=== PATIENT | female | born 1980 | race Caucasian/White ===

== ENCOUNTER 2017-01-24 06:52 | Emergency (ER) | payer OTHER ==
[~2017-01-24] VITALS: Ht 175.3 cm; Wt 100.0 kg
[~2017-01-24 06:52] MED LIST: AMBIEN5 MG OR; AMOXICILLIN500 MG OR; AMOXICILLIN875 MG OR; AUGMENTIN875TAB OR; BENADRYL25 MG OR; CEPHALEXIN500 M1 PO; CEPHALEXIN500 MG PO; FIORICET PO; FLEXERIL10 MG PO; LABETALOL100 MG OR; LEXAPRO20 MG OR; LEXAPRO20 MG PO; MACRODANTIN100 MG PO; MEDDOSEPAK OR; MELATONIN10 M1 PO; MOTRIN IB200 MG OR; MOTRIN800 MG OR; NAPROSYN500 MG PO; NEXIUM40 M1 OR; NO; PERCOCET 5/325M1 TAB OR; PRENATAL1 TAB OR; ROBITUSSIN AC10 ML OR; SINGULAIR PO; SINGULAIR10 MG OR; SM IBUPROFEN200 MG PO; TRAZODONE100 MG OR; TRAZODONE150 MG OR; XANAX1 MG OR
[2017-01-24] MEDS ORDERED: PYRIDIUM200 MG PO (07:17)
[2017-01-24] MEDS ORDERED: MACROBID100 MG PO (07:17)
[2017-01-24 07:54] VITALS: BP 132/88
== END 2017-01-24 07:56 | disposition home or self-care (01) | DRG 690 ==
LOC: ED 06:52
DX: N39.0 Urinary tract infection, site not specified (principal); R30.0 Dysuria

== ENCOUNTER 2017-02-26 18:55 | Emergency (ER) | payer OTHER ==
[~2017-02-26] VITALS: Ht 175.3 cm; Wt 103.0 kg
[~2017-02-26 18:55] MED LIST changes: +MACROBID100 MG PO; +PYRIDIUM200 MG PO
[2017-02-26 19:36] LABS: URINE BILIRUBIN - DIPSTICK NEGATIVE (NEGATIVE); URINE BLOOD DIPSTICK NEGATIVE (NEGATIVE); URINE COLOR YELLOW; URINE GLUCOSE - DIPSTICK NEGATIVE (NEGATIVE); URINE KETONE NEGATIVE (NEGATIVE); URINE NITRITE - DIPSTICK NEGATIVE (Negative); URINE PROTEIN - DIPSTICK NEGATIVE (NEG-TRACE); URINE UROBILINOGEN - DIPSTICK 0.2 E.U./dL (0.2)
[2017-02-26 19:38] LABS: HEMATOCRIT 40.6 % (37.0-47.0); HEMOGLOBIN 13.2 g/dl (12.0-16.0); IMMATURE GRANULOCYTES 0.2 % (0.0-1.0); MEAN CELL VOLUME 84.4 fL CALC (80.0-100.0); MEAN CORPUSCULAR HGB 27.4 pG CALC (26.0-32.0); MEAN CORPUSCULAR HGB CONC 32.5 g/L CALC (32.0-36.0); NEUT# 5.95 thou/uL (2.00-7.15); RED BLOOD COUNT 4.81 mill/uL (4.20-5.60); RED CELL DISTRI WIDTH 15.7 % (11.5-15.5)
[2017-02-26 19:41] LABS: URINE CLARITY CLOUDY; URINE LEUK ESTERASE MODERATE (NEGATIVE)
[2017-02-26 19:48] LABS: ALBUMIN 4.6 g/dL (3.2-5.0); ALKALINE PHOSPHATASE 51 u/l (38-126); AMYLASE 64 u/l (30-110); ANION GAP 13 (6-22 (CALC)); BILIRUBIN, TOTAL 0.4 mg/dL (0.0-1.4); BUN 10 mg/dL (7-17); BUN/CREATININE RATIO 14 (12-20 (CALC)); CALCIUM 9.6 mg/dL (8.4-10.2); CARBON DIOXIDE 25 mmol/l (22-30); CHLORIDE 106 mmol/l (95-108); CREATININE 0.7 mg/dL (0.5-1.0); GFR > 60 ML/MIN (>=60 (CALC)); GFR FOR AFR.AMER. > 60 ML/MIN (>=60 (CALC)); GLUCOSE 52 mg/dL (65-105); LIPASE 177 u/l (23-300); POTASSIUM 4.2 mmol/l (3.5-5.1); SGOT/AST 28 u/l (14-36); SGPT/ALT 35 u/l (9-52); SODIUM 140 mmol/l (137-146)
[2017-02-26 19:51] LABS: URINE SQUAMOUS EPITHELIAL CELL FEW EPI/hpf (0-FEW)
[2017-02-26] MEDS ORDERED: CIPROFLOXACN500 MG PO (21:28)
[2017-02-26 21:41] VITALS: BP 135/78
== END 2017-02-26 21:48 | disposition home or self-care (01) | DRG 690 ==
LOC: ED 18:55
PROVIDERS: Emergency Medicine
DX: N39.0 Urinary tract infection, site not specified (principal); G93.2 Benign intracranial hypertension; J45.909 Unspecified asthma, uncomplicated
CPT/HCPCS: Q9967

== ENCOUNTER 2017-07-07 06:15 | Emergency (ER) | payer OTHER ==
[~2017-07-07] VITALS: Ht 175.3 cm; Wt 104.4 kg
[~2017-07-07 06:15] MED LIST changes: +CIPROFLOXACN500 MG PO
[2017-07-07 07:15] LABS: INFLUENZA A POSITIVE (NONE DETECT); INFLUENZA B NONE DETECTED (NONE DETECT)
[2017-07-07] MEDS ORDERED: TAM75CAP PO (07:17)
[2017-07-07 07:26] VITALS: BP 123/80
== END 2017-07-07 07:39 | disposition home or self-care (01) | DRG 195 ==
LOC: ED 06:15
PROVIDERS: Emergency Medicine
DX: J10.1 Influenza due to other identified influenza virus with other respiratory manifestations (principal)

== ENCOUNTER 2017-12-06 10:41 | Emergency (ER) | payer OTHER ==
[~2017-12-06] VITALS: Ht 175.3 cm; Wt 100.0 kg
[~2017-12-06 10:41] MED LIST changes: +TAM75CAP PO
[2017-12-06] MEDS ORDERED: TORADOL PO (11:56)
[2017-12-06] MEDS ORDERED: FLEXERIL PO (11:56)
[2017-12-06 11:58] VITALS: BP 129/88
== END 2017-12-06 12:20 | disposition home or self-care (01) | DRG 563 ==
LOC: ED 10:41
DX: S86.912A Strain of unspecified muscle(s) and tendon(s) at lower leg level, left leg, initial encounter (principal); S76.012A Strain of muscle, fascia and tendon of left hip, initial encounter; S46.812A Strain of other muscles, fascia and tendons at shoulder and upper arm level, left arm, initial encounter; F17.210 Nicotine dependence, cigarettes, uncomplicated; I10 Essential (primary) hypertension; W18.39XA Other fall on same level, initial encounter; Y93.89 Activity, other specified; Y92.149 Unspecified place in prison as the place of occurrence of the external cause; Y99.0 Civilian activity done for income or pay

== ENCOUNTER 2018-02-17 10:07 | Emergency (ER) | payer OTHER ==
[~2018-02-17] VITALS: Ht 175.3 cm; Wt 104.5 kg
[~2018-02-17 10:07] MED LIST changes: +FLEXERIL PO; +TORADOL PO
[2018-02-17] MEDS ORDERED: CEPHALEXIN500 MG PO (10:29)
[2018-02-17 10:47] LABS: HEMATOCRIT 40.3 % (37.0-47.0); HEMOGLOBIN 13.1 g/dl (12.0-16.0); IMMATURE GRANULOCYTES 0.3 % (0.0-5.0); MEAN CELL VOLUME 85.6 fL CALC (80.0-100.0); MEAN CORPUSCULAR HGB 27.8 pG CALC (26.0-32.0); MEAN CORPUSCULAR HGB CONC 32.5 g/L CALC (32.0-36.0); NEUT# 5.02 thou/uL (2.00-7.15); RED BLOOD COUNT 4.71 mill/uL (4.20-5.60); RED CELL DISTRI WIDTH 14.6 % (11.5-15.5)
[2018-02-17 10:48] LABS: URINE BILIRUBIN - DIPSTICK NEGATIVE (NEGATIVE); URINE BLOOD DIPSTICK NEGATIVE (NEGATIVE); URINE CLARITY CLEAR; URINE COLOR YELLOW; URINE GLUCOSE - DIPSTICK NEGATIVE (NEGATIVE); URINE KETONE NEGATIVE (NEGATIVE); URINE LEUK ESTERASE NEGATIVE (NEGATIVE); URINE NITRITE - DIPSTICK NEGATIVE (Negative); URINE PH 5.5 (4.5-8.0); URINE PROTEIN - DIPSTICK NEGATIVE (NEG-TRACE); URINE SPECIFIC GRAVITY >=1.030; URINE UROBILINOGEN - DIPSTICK 0.2 E.U./dL (0.2)
[2018-02-17 11:18] LABS: ALBUMIN 4.2 g/dL (3.2-5.0); ALKALINE PHOSPHATASE 55 u/l (38-126); ANION GAP 17 (6-22 (CALC)); BILIRUBIN, TOTAL 0.5 mg/dL (0.0-1.4); BUN 14 mg/dL (7-17); BUN/CREATININE RATIO 21 (12-20 (CALC)); CARBON DIOXIDE 21 mmol/l (22-30); CHLORIDE 107 mmol/l (95-108); CREATININE 0.7 mg/dL (0.5-1.0); GFR > 60 ML/MIN (>=60 (CALC)); GFR FOR AFR.AMER. > 60 ML/MIN (>=60 (CALC)); LIPASE 126 u/l (23-300); POTASSIUM 4.3 mmol/l (3.5-5.1); SGOT/AST 38 u/l (14-36); SGPT/ALT 29 u/l (9-52); SODIUM 141 mmol/l (137-146); TOTAL PROTEIN 7.8 g/dL (6.3-8.2)
[2018-02-17] MEDS ORDERED: OMNICEF300 M1 PO (11:45)
[2018-02-17 11:50] VITALS: BP 117/73
== END 2018-02-17 11:50 | disposition home or self-care (01) | DRG 690 ==
LOC: ED 10:07
PROVIDERS: Family Medicine
DX: N39.0 Urinary tract infection, site not specified (principal); F17.210 Nicotine dependence, cigarettes, uncomplicated; Z87.442 Personal history of urinary calculi

== ENCOUNTER 2019-01-04 05:38 | Emergency (ER) | payer OTHER ==
[~2019-01-04] VITALS: Ht 175.3 cm; Wt 110.0 kg
[~2019-01-04 05:38] MED LIST changes: +OMNICEF300 M1 PO
[2019-01-04 06:26] LABS: HEMATOCRIT 37.6 % (37.0-47.0); HEMOGLOBIN 12.3 g/dl (12.0-16.0); IMMATURE GRANULOCYTES 0.2 % (0.0-5.0); MEAN CELL VOLUME 85.5 fL CALC (80.0-100.0); MEAN CORPUSCULAR HGB CONC 32.7 g/L CALC (32.0-36.0); NEUT# 6.26 thou/uL (2.00-7.15); RED BLOOD COUNT 4.4 mill/uL (4.20-5.60); RED CELL DISTRI WIDTH 15.1 % (11.5-15.5)
[2019-01-04 06:46] LABS: ALBUMIN 4.2 g/dL (3.2-5.0); ALKALINE PHOSPHATASE 59 u/l (38-126); ANION GAP 13 (6-22 (CALC)); BILIRUBIN, TOTAL 0.3 mg/dL (0.0-1.4); BUN 19 mg/dL (7-17); BUN/CREATININE RATIO 29 (12-20 (CALC)); CARBON DIOXIDE 24 mmol/l (22-30); CHLORIDE 106 mmol/l (95-108); CREATININE 0.6 mg/dL (0.5-1.0); GFR > 60 ML/MIN (>=60 (CALC)); GFR FOR AFR.AMER. > 60 ML/MIN (>=60 (CALC)); POTASSIUM 3.8 mmol/l (3.5-5.1); SGOT/AST 38 u/l (14-36); SODIUM 139 mmol/l (137-146); TOTAL PROTEIN 7.2 g/dL (6.3-8.2)
[2019-01-04 06:58] LABS: MYOGLOBIN 21 ng/mL (0 - 62)
[2019-01-04] MEDS ORDERED: CYCLOBENZAPR5 MG PO (07:26)
[2019-01-04 07:45] VITALS: BP 118/76
== END 2019-01-04 07:45 | disposition home or self-care (01) | DRG 93 ==
LOC: ED 05:38
PROVIDERS: Emergency Medicine
DX: R20.2 Paresthesia of skin (principal); F17.210 Nicotine dependence, cigarettes, uncomplicated

== ENCOUNTER 2019-02-17 12:26 | Emergency (ER) | payer OTHER ==
[~2019-02-17] VITALS: Ht 175.3 cm; Wt 101.0 kg
[~2019-02-17 12:26] MED LIST changes: +CYCLOBENZAPR5 MG PO
[2019-02-17 13:02] LABS: URINE BILIRUBIN - DIPSTICK NEGATIVE (NEGATIVE); URINE BLOOD DIPSTICK NEGATIVE (NEGATIVE); URINE COLOR YELLOW; URINE GLUCOSE - DIPSTICK NEGATIVE (NEGATIVE); URINE KETONE NEGATIVE (NEGATIVE); URINE NITRITE - DIPSTICK NEGATIVE (Negative); URINE PH 5.5 (4.5-8.0); URINE PROTEIN - DIPSTICK NEGATIVE (NEG-TRACE); URINE SPECIFIC GRAVITY 1.025; URINE UROBILINOGEN - DIPSTICK 0.2 E.U./dL (0.2)
[2019-02-17 13:06] LABS: URINE LEUK ESTERASE MODERATE (NEGATIVE)
[2019-02-17 13:07] LABS: URINE BACTERIA FEW hpf; URINE EPITHELIAL CELLS FEW EPI/hpf (0-FEW)
[2019-02-17 13:19] LABS: HEMATOCRIT 42.3 % (37.0-47.0); HEMOGLOBIN 13.8 g/dl (12.0-16.0); IMMATURE GRANULOCYTES 0.2 % (0.0-5.0); MEAN CELL VOLUME 85.8 fL CALC (80.0-100.0); MEAN CORPUSCULAR HGB CONC 32.6 g/L CALC (32.0-36.0); NEUT# 6.49 thou/uL (2.00-7.15); RED BLOOD COUNT 4.93 mill/uL (4.20-5.60); RED CELL DISTRI WIDTH 14.6 % (11.5-15.5)
[2019-02-17 13:45] LABS: ALBUMIN 4.7 g/dL (3.2-5.0); ALKALINE PHOSPHATASE 65 u/l (38-126); ANION GAP 15 (6-22 (CALC)); BILIRUBIN, TOTAL 0.5 mg/dL (0.0-1.4); BUN 15 mg/dL (7-17); BUN/CREATININE RATIO 22 (12-20 (CALC)); CARBON DIOXIDE 24 mmol/l (22-30); CHLORIDE 106 mmol/l (95-108); CREATININE 0.7 mg/dL (0.5-1.0); GFR > 60 ML/MIN (>=60 (CALC)); GFR FOR AFR.AMER. > 60 ML/MIN (>=60 (CALC)); LIPASE 132 u/l (23-300); SGOT/AST 34 u/l (14-36); SODIUM 140 mmol/l (137-146); TOTAL PROTEIN 8.1 g/dL (6.3-8.2)
[2019-02-17] MEDS ORDERED: ATORVASTATIN CA20 MG PO (14:04)
[2019-02-17] MEDS ORDERED: KEFLEX500 M1 PO (17:16)
[2019-02-17 17:30] VITALS: BP 118/76
== END 2019-02-17 17:45 | disposition home or self-care (01) | DRG 690 ==
LOC: ED 12:26
DX: N39.0 Urinary tract infection, site not specified (principal); R19.03 Right lower quadrant abdominal swelling, mass and lump; F17.200 Nicotine dependence, unspecified, uncomplicated
CPT/HCPCS: Q9967

== ENCOUNTER 2019-08-12 | Emergency (ER) | payer OTHER ==
[~2019-08-12] MED LIST changes: +ATORVASTATIN CA20 MG PO; +KEFLEX500 M1 PO
[2019-08-12] MEDS ORDERED: ZPAK PO (08:27)
[2019-08-12] MEDS ORDERED: PROAIR HFA108 MCG/AC PO (08:28)
== END 2019-08-12 08:35 | disposition home or self-care (01) | DRG 153 ==
DX: J06.9 Acute upper respiratory infection, unspecified (principal); F17.200 Nicotine dependence, unspecified, uncomplicated

== ENCOUNTER 2019-09-09 | Emergency (ER) | payer OTHER ==
[~2019-09-09] MED LIST changes: +PROAIR HFA108 MCG/AC PO; +ZPAK PO
[2019-09-09] MEDS ORDERED: HYDROXYZ PAM25 MG PO (10:17)
[2019-09-09] MEDS ORDERED: ESCITALOPRAM OX10 MG PO (10:19)
[2019-09-09] MEDS ORDERED: PREDNISODT10 PO (10:19)
[2019-09-09] MEDS ORDERED: TRILEPTAL150 MG PO (10:20)
[2019-09-09 10:32] LABS: HEMATOCRIT 40.4 % (37.0-47.0); HEMOGLOBIN 12.6 g/dl (12.0-16.0); IMMATURE GRANULOCYTES 0.5 % (0.0-5.0); MEAN CELL VOLUME 85.1 fL CALC (80.0-100.0); MEAN CORPUSCULAR HGB 26.5 pG CALC (26.0-32.0); MEAN CORPUSCULAR HGB CONC 31.2 g/dL CAL (32.0-36.0); NEUT# 9.79 thou/uL (2.00-7.15); RED BLOOD COUNT 4.75 mill/uL (4.20-5.60); RED CELL DISTRI WIDTH 15.1 % (11.5-15.5)
[2019-09-09 10:47] LABS: ALBUMIN 4.4 g/dL (3.2-5.0); ALKALINE PHOSPHATASE 52 u/l (38-126); ANION GAP 13 (6-22 (CALC)); BILIRUBIN, TOTAL 0.4 mg/dL (0.0-1.4); BUN 14 mg/dL (7-17); BUN/CREATININE RATIO 22 (12-20 (CALC)); CARBON DIOXIDE 24 mmol/l (22-30); CHLORIDE 105 mmol/l (95-108); CREATININE 0.7 mg/dL (0.5-1.0); GFR > 60 ML/MIN (>=60 (CALC)); GFR FOR AFR.AMER. > 60 ML/MIN (>=60 (CALC)); POTASSIUM 4.1 mmol/l (3.5-5.1); SGOT/AST 30 u/l (14-36); SODIUM 138 mmol/l (137-146); TOTAL PROTEIN 7.8 g/dL (6.3-8.2)
[2019-09-09] MEDS ORDERED: ALBUTEROL SUL0.083 % IN (11:29)
== END 2019-09-09 11:43 | disposition home or self-care (01) | DRG 203 ==
PROVIDERS: Emergency Medicine
DX: J45.909 Unspecified asthma, uncomplicated (principal); Z87.891 Personal history of nicotine dependence

== ENCOUNTER 2020-02-16 11:02 | Emergency (ER) | payer OTHER ==
[~2020-02-16] VITALS: Ht 175.3 cm; Wt 103.0 kg
[~2020-02-16 11:02] MED LIST changes: +ALBUTEROL SUL0.083 % IN; +ESCITALOPRAM OX10 MG PO; +HYDROXYZ PAM25 MG PO; +PREDNISODT10 PO; +TRILEPTAL150 MG PO
[2020-02-16 12:22] VITALS: BP 128/90
[2020-02-16] MEDS ORDERED: FLOXIN OTIC0.3 % AD (12:23)
== END 2020-02-16 12:35 | disposition home or self-care (01) | DRG 156 ==
LOC: ED 11:02
PROC: 3E1B78Z Irrigation of Ear using Irrigating Substance, Via Natural or Artificial Opening (ICD-10-PCS; principal; 2020-02-16)
PROC: 3E1B78Z Irrigation of Ear using Irrigating Substance, Via Natural or Artificial Opening (ICD-10-PCS; 2020-02-16)
DX: H61.23 Impacted cerumen, bilateral (principal); S00.411A Abrasion of right ear, initial encounter; J45.909 Unspecified asthma, uncomplicated; F17.290 Nicotine dependence, other tobacco product, uncomplicated; X58.XXXA Exposure to other specified factors, initial encounter

== ENCOUNTER 2020-12-06 08:50 | Emergency (ER) | payer OTHER ==
[~2020-12-06] VITALS: Ht 175.3 cm; Wt 109.0 kg
[~2020-12-06 08:50] MED LIST changes: +FLOXIN OTIC0.3 % AD
[2020-12-06] MEDS ORDERED: TRAZODONE50 MG PO (09:27)
[2020-12-06] MEDS ORDERED: KLONOPIN0.5 M1 PO (09:29)
[2020-12-06] MEDS ORDERED: CLARITIN10 M1 PO (10:15)
[2020-12-06] MEDS ORDERED: AMOXICILLIN500 MG PO (10:15)
[2020-12-06 10:22] VITALS: BP 135/81
== END 2020-12-06 10:28 | disposition home or self-care (01) | DRG 153 ==
LOC: ED 08:50
DX: J02.9 Acute pharyngitis, unspecified (principal); J45.909 Unspecified asthma, uncomplicated; F17.200 Nicotine dependence, unspecified, uncomplicated; Z20.822 Contact with and (suspected) exposure to COVID-19

== ENCOUNTER 2020-12-08 07:56 | Emergency (ER) | payer OTHER ==
[~2020-12-08] VITALS: Ht 175.3 cm; Wt 109.0 kg
[~2020-12-08 07:56] MED LIST changes: +AMOXICILLIN500 MG PO; +CLARITIN10 M1 PO; +KLONOPIN0.5 M1 PO; +TRAZODONE50 MG PO
[2020-12-08 08:40] LABS: URINE BILIRUBIN - DIPSTICK NEGATIVE (NEGATIVE); URINE BLOOD DIPSTICK NEGATIVE (NEGATIVE); URINE COLOR YELLOW; URINE GLUCOSE - DIPSTICK NEGATIVE (NEGATIVE); URINE KETONE NEGATIVE (NEGATIVE); URINE LEUK ESTERASE NEGATIVE (NEGATIVE); URINE NITRITE - DIPSTICK NEGATIVE (Negative); URINE PH 5.5 (4.5-8.0); URINE PROTEIN - DIPSTICK NEGATIVE (NEG-TRACE); URINE SPECIFIC GRAVITY >=1.030; URINE UROBILINOGEN - DIPSTICK 0.2 E.U./dL (0.2)
[2020-12-08 09:04] LABS: HEMOGLOBIN 12.6 g/dl (12.0-16.0); IMMATURE GRANULOCYTES 0.1 % (0.0-5.0); MEAN CELL VOLUME 80.2 fL CALC (80.0-100.0); MEAN CORPUSCULAR HGB 25.3 pG CALC (26.0-32.0); MEAN CORPUSCULAR HGB CONC 31.5 g/dL CAL (32.0-36.0); NEUT# 8.23 thou/uL (2.00-7.15); RED BLOOD COUNT 4.99 mill/uL (4.20-5.60); RED CELL DISTRI WIDTH 16.1 % (11.5-15.5)
[2020-12-08 09:15] LABS: ALBUMIN 4.3 g/dL (3.2-5.0); ALKALINE PHOSPHATASE 85 u/l (38-126); ANION GAP 13 (6-22 (CALC)); BILIRUBIN, TOTAL 0.3 mg/dL (0.0-1.4); BUN 13 mg/dL (7-17); BUN/CREATININE RATIO 19 (12-20 (CALC)); CARBON DIOXIDE 20 mmol/l (22-30); CHLORIDE 106 mmol/l (95-108); CREATININE 0.7 mg/dL (0.5-1.0); GFR > 60 ML/MIN (>=60 (CALC)); GFR FOR AFR.AMER. > 60 ML/MIN (>=60 (CALC)); LIPASE 140 u/l (23-300); POTASSIUM 4.1 mmol/l (3.5-5.1); SGOT/AST 32 u/l (14-36); SODIUM 136 mmol/l (137-146); TOTAL PROTEIN 7.7 g/dL (6.3-8.2)
[2020-12-08] MEDS ORDERED: EPIPEN 2-P0.3 MG/0.3 IM (10:09)
[2020-12-08] MEDS ORDERED: PREDNISONE50 MG PO (10:09)
[2020-12-08] MEDS ORDERED: ZPAK PO (10:09)
[2020-12-08 10:11] VITALS: BP 131/72
== END 2020-12-08 10:20 | disposition home or self-care (01) | DRG 607 ==
LOC: ED 07:56
PROVIDERS: Family Medicine
DX: L50.0 Allergic urticaria (principal); N83.9 Noninflammatory disorder of ovary, fallopian tube and broad ligament, unspecified; N83.201 Unspecified ovarian cyst, right side; J45.909 Unspecified asthma, uncomplicated; F17.200 Nicotine dependence, unspecified, uncomplicated

== ENCOUNTER 2020-12-16 07:27 | Emergency (ER) | payer OTHER ==
[~2020-12-16] VITALS: Ht 175.3 cm; Wt 95.0 kg
[~2020-12-16 07:27] MED LIST changes: +EPIPEN 2-P0.3 MG/0.3 IM; +PREDNISONE50 MG PO
[2020-12-16] MEDS ORDERED: LEXAPRO10 MG PO (07:54)
[2020-12-16 08:10] LABS: URINE BILIRUBIN - DIPSTICK NEGATIVE (NEGATIVE); URINE BLOOD DIPSTICK TRACE-LYSED (NEGATIVE); URINE COLOR YELLOW; URINE GLUCOSE - DIPSTICK NEGATIVE (NEGATIVE); URINE KETONE TRACE mg/dL (NEGATIVE); URINE LEUK ESTERASE NEGATIVE (NEGATIVE); URINE PROTEIN - DIPSTICK NEGATIVE (NEG-TRACE); URINE SPECIFIC GRAVITY 1.025; URINE UROBILINOGEN - DIPSTICK 0.2 E.U./dL (0.2)
[2020-12-16 08:11] LABS: HEMATOCRIT 37.5 % (37.0-47.0); HEMOGLOBIN 11.7 g/dl (12.0-16.0); IMMATURE GRANULOCYTES 0.1 % (0.0-5.0); MEAN CELL VOLUME 81.9 fL CALC (80.0-100.0); MEAN CORPUSCULAR HGB 25.5 pG CALC (26.0-32.0); MEAN CORPUSCULAR HGB CONC 31.2 g/dL CAL (32.0-36.0); NEUT# 6.01 thou/uL (2.00-7.15); RED BLOOD COUNT 4.58 mill/uL (4.20-5.60); RED CELL DISTRI WIDTH 16.8 % (11.5-15.5)
[2020-12-16 08:12] LABS: URINE NITRITE - DIPSTICK NEGATIVE (Negative)
[2020-12-16 08:27] LABS: ALKALINE PHOSPHATASE 65 u/l (38-126); AMYLASE 81 u/l (30-110); ANION GAP 11 (6-22 (CALC)); BILIRUBIN, TOTAL 0.3 mg/dL (0.0-1.4); BUN 17 mg/dL (7-17); BUN/CREATININE RATIO 19 (12-20 (CALC)); CHLORIDE 104 mmol/l (95-108); CREATININE 0.9 mg/dL (0.5-1.0); GFR > 60 ML/MIN (>=60 (CALC)); GFR FOR AFR.AMER. > 60 ML/MIN (>=60 (CALC)); LIPASE 168 u/l (23-300); POTASSIUM 3.8 mmol/l (3.5-5.1); SGOT/AST 30 u/l (14-36); SODIUM 138 mmol/l (137-146); TOTAL PROTEIN 7.3 g/dL (6.3-8.2)
[2020-12-16 08:34] LABS: CARBON DIOXIDE 27 mmol/l (22-30)
[2020-12-16] MEDS ORDERED: HYDROCO/APAP1 TA9 PO (10:22)
[2020-12-16 11:07] VITALS: BP 117/60
== END 2020-12-16 11:00 | disposition home or self-care (01) | DRG 761 ==
LOC: ED 07:27
DX: N83.201 Unspecified ovarian cyst, right side (principal); J45.909 Unspecified asthma, uncomplicated
CPT/HCPCS: Q9967

== ENCOUNTER 2021-03-22 12:04 | Emergency (ER) | payer OTHER ==
[~2021-03-22] VITALS: Ht 175.3 cm; Wt 120.0 kg
[~2021-03-22 12:04] MED LIST changes: +HYDROCO/APAP1 TA9 PO; +LEXAPRO10 MG PO
[2021-03-22 12:47] LABS: URINE BLOOD DIPSTICK NEGATIVE (NEGATIVE); URINE GLUCOSE - DIPSTICK 100 mg/dL (NEGATIVE); URINE KETONE 15 mg/dL (NEGATIVE); URINE PH 5.5 (4.5-8.0); URINE PROTEIN - DIPSTICK 30 mg/dL (NEG-TRACE); URINE SPECIFIC GRAVITY 1.025
[2021-03-22 12:48] LABS: URINE BILIRUBIN - DIPSTICK SMALL (NEGATIVE); URINE LEUK ESTERASE MODERATE (NEGATIVE); URINE NITRITE - DIPSTICK POSITIVE (Negative)
[2021-03-22 12:49] LABS: URINE BACTERIA FEW hpf; URINE COLOR ORANGE; URINE EPITHELIAL CELLS FEW EPI/hpf (0-FEW); URINE WBC 0-2 WBC/hpf (0-5)
[2021-03-22] MEDS ORDERED: VALIUM2 MG PO (12:59)
[2021-03-22] MEDS ORDERED: LORATADINE10 M1 PO (13:00)
[2021-03-22] MEDS ORDERED: FLEXERIL5 M1 PO (13:26)
[2021-03-22] MEDS ORDERED: KEFLEX500 MG PO (13:26)
[2021-03-22 13:44] VITALS: BP 133/87
== END 2021-03-22 13:44 | disposition home or self-care (01) | DRG 690 ==
LOC: ED 12:04
DX: N39.0 Urinary tract infection, site not specified (principal); S39.012A Strain of muscle, fascia and tendon of lower back, initial encounter; J45.909 Unspecified asthma, uncomplicated; B96.89 Other specified bacterial agents as the cause of diseases classified elsewhere; X58.XXXA Exposure to other specified factors, initial encounter; Z88.0 Allergy status to penicillin

== ENCOUNTER 2022-12-02 16:32 | Emergency (ER) | payer SELFPAY ==
[~2022-12-02] VITALS: Ht 175.3 cm; Wt 104.0 kg
[~2022-12-02 16:32] MED LIST changes: +FLEXERIL5 M1 PO; +KEFLEX500 MG PO; +LORATADINE10 M1 PO; +VALIUM2 MG PO
[2022-12-02 17:02] VITALS: BP 133/93
[2022-12-02 17:04] LABS: BASO% 0.2 % (0-3); EOS% 0.8 % (0-8); IMMATURE GRANULOCYTES 0.2 % (0.0-5.0); MEAN CORPUSCULAR HGB 28.1 pG CALC (26.0-32.0); MEAN CORPUSCULAR HGB CONC 32.2 g/dL CAL (32.0-36.0); MONO% 5.8 % (2-13); NEUT# 12.25 thou/uL (2.00-7.15); RED BLOOD COUNT 5.38 mill/uL (4.20-5.60); RED CELL DISTRI WIDTH 14.6 % (11.5-15.5)
[2022-12-02 17:05] LABS: HEMATOCRIT 46.9 % (37.0-47.0); HEMOGLOBIN 15.1 g/dl (12.0-16.0); MEAN CELL VOLUME 87.2 fL CALC (80.0-100.0)
[2022-12-02 17:15] LABS: ALBUMIN 4.9 g/dL (3.2-5.0); ALKALINE PHOSPHATASE 90 u/l (38-126); ANION GAP 19 (6-22 (CALC)); BILIRUBIN, TOTAL 0.5 mg/dL (0.02-1.3); BUN 14 mg/dL (7-17); BUN/CREATININE RATIO 14 (12-20 (CALC)); CARBON DIOXIDE 19 mmol/l (22-30); CHLORIDE 105 mmol/l (95-108); CREATININE 1.1 mg/dL (0.5-1.0); GFR FOR AFR.AMER. > 60 ML/MIN (>=60 (CALC)); GFR OTHER RACES 55 ML/MIN (>=60 (CALC)); LIPASE 117 u/l (23-300); POTASSIUM 3.2 mmol/l (3.5-5.1); SGOT/AST 47 u/l (14-36); SODIUM 140 mmol/l (137-146); TOTAL PROTEIN 9.2 g/dL (6.3-8.2)
[2022-12-02 17:16] VITALS: BP 125/79
[2022-12-02 17:30] VITALS: BP 114/89
[2022-12-02 18:00] VITALS: BP 133/87
[2022-12-02 18:16] VITALS: BP 136/84
[2022-12-02] MEDS ORDERED: ZOFRAN4 MG/TAB PO (18:27)
[2022-12-02 18:46] VITALS: BP 136/84
== END 2022-12-02 18:45 | disposition home or self-care (01) | DRG 392 ==
LOC: ED 16:32
PROVIDERS: Family Medicine
DX: R10.13 Epigastric pain (principal); J45.909 Unspecified asthma, uncomplicated
CPT/HCPCS: Q9967

== ENCOUNTER 2022-12-03 08:54 | Emergency (ER) | payer SELFPAY ==
[~2022-12-03] VITALS: Ht 175.3 cm; Wt 104.0 kg
[~2022-12-03 08:54] MED LIST changes: +ZOFRAN4 MG/TAB PO
[2022-12-03 09:03] VITALS: BP 140/79
[2022-12-03 09:25] LABS: BASO% 0.1 % (0-3); HEMATOCRIT 41.5 % (37.0-47.0); HEMOGLOBIN 13.7 g/dl (12.0-16.0); IMMATURE GRANULOCYTES 0.5 % (0.0-5.0); LYMPH% 7.3 % (15-41); MEAN CELL VOLUME 85.4 fL CALC (80.0-100.0); MEAN CORPUSCULAR HGB 28.2 pG CALC (26.0-32.0); MONO% 3.4 % (2-13); NEUT# 11.67 thou/uL (2.00-7.15); NEUT% 88.7 % (42-76); RED BLOOD COUNT 4.86 mill/uL (4.20-5.60); RED CELL DISTRI WIDTH 14.8 % (11.5-15.5)
[2022-12-03 09:31] VITALS: BP 144/70
[2022-12-03 09:41] LABS: ALBUMIN 4.6 g/dL (3.2-5.0); ALKALINE PHOSPHATASE 83 u/l (38-126); ANION GAP 16 (6-22 (CALC)); BUN 13 mg/dL (7-17); BUN/CREATININE RATIO 17 (12-20 (CALC)); CARBON DIOXIDE 18 mmol/l (22-30); CHLORIDE 106 mmol/l (95-108); CREATININE 0.8 mg/dL (0.5-1.0); GFR FOR AFR.AMER. > 60 ML/MIN (>=60 (CALC)); GFR OTHER RACES > 60 ML/MIN (>=60 (CALC)); LIPASE 58 u/l (23-300); POTASSIUM 3.7 mmol/l (3.5-5.1); SGOT/AST 42 u/l (14-36); SODIUM 136 mmol/l (137-146); TOTAL PROTEIN 8.3 g/dL (6.3-8.2)
[2022-12-03 09:46] VITALS: BP 114/81
[2022-12-03 09:48] LABS: BILIRUBIN, TOTAL 0.9 mg/dL (0.02-1.3)
[2022-12-03 11:00] VITALS: BP 92/61
[2022-12-03 13:41] VITALS: BP 92/61
== END 2022-12-03 13:55 | disposition home or self-care (01) | DRG 392 ==
LOC: ED 08:54
PROVIDERS: Family Medicine
DX: R10.13 Epigastric pain (principal); R10.33 Periumbilical pain; R11.2 Nausea with vomiting, unspecified; J45.909 Unspecified asthma, uncomplicated
CPT/HCPCS: Q9967

== ENCOUNTER 2022-12-08 17:55 | Emergency (ER) | payer SELFPAY ==
[~2022-12-08] VITALS: Ht 175.3 cm; Wt 109.8 kg
[2022-12-08] VITALS (9 sets, daily range): BP systolic 106–160; BP diastolic 66–98
[2022-12-08] MEDS ORDERED: TRILEPTAL300 MG PO (18:10)
[2022-12-08] MEDS ORDERED: TRAZODONE100 MG PO (18:11)
[2022-12-08] MEDS ORDERED: ESCITALOPRAM OX10 MG PO (18:11)
[2022-12-08] MEDS ORDERED: HYDROXYZ HCL50 MG PO (18:12)
[2022-12-08] MEDS ORDERED: BUSPAR10 MG PO (18:13)
[2022-12-08] MEDS ORDERED: SOLIFENACIN SUC10 MG PO (18:13)
[2022-12-08 18:21] LABS: BASO% 0.1 % (0-3); EOS% 1.5 % (0-8); HEMATOCRIT 44.1 % (37.0-47.0); HEMOGLOBIN 14.2 g/dl (12.0-16.0); IMMATURE GRANULOCYTES 0.1 % (0.0-5.0); LYMPH% 18.1 % (15-41); MEAN CELL VOLUME 87.7 fL CALC (80.0-100.0); MEAN CORPUSCULAR HGB 28.2 pG CALC (26.0-32.0); MEAN CORPUSCULAR HGB CONC 32.2 g/dL CAL (32.0-36.0); MONO% 4.1 % (2-13); NEUT# 10.47 thou/uL (2.00-7.15); NEUT% 76.1 % (42-76); RED BLOOD COUNT 5.03 mill/uL (4.20-5.60); RED CELL DISTRI WIDTH 14.9 % (11.5-15.5)
[2022-12-08 18:30] LABS: ALBUMIN 4.5 g/dL (3.2-5.0); ALKALINE PHOSPHATASE 83 u/l (38-126); ANION GAP 17 (6-22 (CALC)); BILIRUBIN, TOTAL 0.6 mg/dL (0.02-1.3); BUN 13 mg/dL (7-17); BUN/CREATININE RATIO 15 (12-20 (CALC)); CARBON DIOXIDE 18 mmol/l (22-30); CHLORIDE 110 mmol/l (95-108); CREATININE 0.9 mg/dL (0.5-1.0); GFR FOR AFR.AMER. > 60 ML/MIN (>=60 (CALC)); GFR OTHER RACES > 60 ML/MIN (>=60 (CALC)); LIPASE 266 u/l (23-300); POTASSIUM 3.6 mmol/l (3.5-5.1); SGOT/AST 48 u/l (14-36); SODIUM 141 mmol/l (137-146); TOTAL PROTEIN 8.2 g/dL (6.3-8.2)
[2022-12-08] MEDS ORDERED: DICYCLOMINE10 MG PO (20:32)
[2022-12-08] MEDS ORDERED: PEPCID40 MG PO (20:32)
[2022-12-08] MEDS ORDERED: PROCHLORPER25 MG RE (20:32)
[2022-12-08 22:29] LABS: URINE BILIRUBIN - DIPSTICK NEGATIVE (NEGATIVE); URINE BLOOD DIPSTICK NEGATIVE (NEGATIVE); URINE COLOR YELLOW; URINE GLUCOSE - DIPSTICK NEGATIVE (NEGATIVE); URINE KETONE 40 mg/dL (NEGATIVE); URINE LEUK ESTERASE NEGATIVE (NEGATIVE); URINE PH 8.5 (4.5-8.0); URINE PROTEIN - DIPSTICK NEGATIVE (NEG-TRACE); URINE UROBILINOGEN - DIPSTICK 0.2 E.U./dL (0.2)
[2022-12-08 22:30] LABS: URINE NITRITE - DIPSTICK NEGATIVE (Negative)
== END 2022-12-08 20:48 | disposition home or self-care (01) | DRG 392 ==
LOC: ED 17:55
PROVIDERS: Family Medicine
DX: R11.2 Nausea with vomiting, unspecified (principal); R10.84 Generalized abdominal pain; J45.909 Unspecified asthma, uncomplicated
CPT/HCPCS: Q9967

== ENCOUNTER 2023-07-29 11:00 | Emergency (ER) | payer SELFPAY ==
[~2023-07-29] VITALS: Ht 175.3 cm; Wt 95.2 kg
[~2023-07-29 11:00] MED LIST changes: +BUSPAR10 MG PO; +DICYCLOMINE10 MG PO; +HYDROXYZ HCL50 MG PO; +PEPCID40 MG PO; +PROCHLORPER25 MG RE; +SOLIFENACIN SUC10 MG PO; +TRAZODONE100 MG PO; +TRILEPTAL300 MG PO
[2023-07-29 11:57] LABS: URINE BLOOD DIPSTICK Negative (NEGATIVE); URINE COLOR Yellow; URINE GLUCOSE - DIPSTICK Negative (NEGATIVE); URINE KETONE Trace mg/dL (NEGATIVE); URINE LEUK ESTERASE Negative (NEGATIVE); URINE NITRITE - DIPSTICK Negative (Negative); URINE PH 5.5 (4.5-8.0); URINE PROTEIN - DIPSTICK Negative (NEG-TRACE); URINE SPECIFIC GRAVITY >=1.030; URINE UROBILINOGEN - DIPSTICK 0.2 E.U./dL (0.2)
[2023-07-29] MEDS ORDERED: OXYBUTYNIN 5 MG/TAB PO ONE (13:40)
[2023-07-29 14:19] LABS: BASO% 0.2 % (0-3); HEMATOCRIT 45.3 % (37.0-47.0); HEMOGLOBIN 14.7 g/dl (12.0-16.0); IMMATURE GRANULOCYTES 0.2 % (0.0-5.0); LYMPH% 19.3 % (15-41); MEAN CELL VOLUME 88.8 fL CALC (80.0-100.0); MEAN CORPUSCULAR HGB 28.8 pG CALC (26.0-32.0); MEAN CORPUSCULAR HGB CONC 32.5 g/dL CAL (32.0-36.0); MONO% 4.8 % (2-13); NEUT# 8.62 thou/uL (2.00-7.15); NEUT% 74.5 % (42-76); RED BLOOD COUNT 5.1 mill/uL (4.20-5.60)
[2023-07-29 14:29] LABS: ALBUMIN 4.4 g/dL (3.2-5.0); ALKALINE PHOSPHATASE 85 u/l (38-126); BUN 15 mg/dL (7-17); BUN/CREATININE RATIO 19 (12-20 (CALC)); CHLORIDE 109 mmol/l (95-108); CREATININE 0.8 mg/dL (0.5-1.0); GFR FOR AFR.AMER. > 60 ML/MIN (>=60 (CALC)); GFR OTHER RACES > 60 ML/MIN (>=60 (CALC)); POTASSIUM 4.1 mmol/l (3.5-5.1); SGOT/AST 37 u/l (14-36); SODIUM 139 mmol/l (137-146); TOTAL PROTEIN 7.9 g/dL (6.3-8.2)
[2023-07-29 14:32] LABS: ANION GAP 14 (6-22 (CALC)); BILIRUBIN, TOTAL 0.4 mg/dL (0.02-1.3); CARBON DIOXIDE 20 mmol/l (22-30)
[2023-07-29] MEDS ORDERED: OXYBUTYNIN CHLOR5 M2 PO (14:57)
[2023-07-29 15:06] VITALS: BP 128/71
== END 2023-07-29 15:21 | disposition home or self-care (01) | DRG 696 ==
LOC: ED 11:00
PROVIDERS: Family Medicine
DX: R39.89 Other symptoms and signs involving the genitourinary system (principal); F17.200 Nicotine dependence, unspecified, uncomplicated

== ENCOUNTER 2024-07-26 16:10 | Emergency (ER) | payer SELFPAY ==
[~2024-07-26] VITALS: Ht 175.3 cm; Wt 91.0 kg
[~2024-07-26 16:10] MED LIST changes: +OMEPRAZOLE20 MG PO; +OXYBUTYNIN CHLOR5 M2 PO
[2024-07-26 16:19] VITALS: BP 143/72
[2024-07-26] MEDS ORDERED: SODIUM CHLORIDE 0.9% 1,000 ML IV STA (16:32)
[2024-07-26] MEDS ORDERED: ONDANSETRON HCl 4 MG/2 ML SDV IV STA (16:32)
[2024-07-26 16:52] LABS: BASO% 0.1 % (0-3); EOS% 0.1 % (0-8); HEMATOCRIT 43.2 % (37.0-47.0); HEMOGLOBIN 14.5 g/dl (12.0-16.0); IMMATURE GRANULOCYTES 0.2 % (0.0-5.0); LYMPH% 8.6 % (15-41); MEAN CORPUSCULAR HGB 29.5 pG CALC (26.0-32.0); MEAN CORPUSCULAR HGB CONC 33.6 g/dL CAL (32.0-36.0); NEUT# 15.97 thou/uL (2.00-7.15); RED BLOOD COUNT 4.91 mill/uL (4.20-5.60); RED CELL DISTRI WIDTH 13.8 % (11.5-15.5)
[2024-07-26 17:38] LABS: ALBUMIN 4.2 g/dL (3.2-5.0); BILIRUBIN, TOTAL 0.6 mg/dL (0.02-1.3); CREATININE 0.9 mg/dL (0.5-1.0); MAGNESIUM 1.8 mg/dL (1.6-2.3); POTASSIUM 3.6 mmol/l (3.5-5.1); TOTAL PROTEIN 7.1 g/dL (6.3-8.2)
[2024-07-26] MEDS ORDERED: KETOROLAC TROMETHAMINE 30 MG/ML SDV IV ONE (17:45)
[2024-07-26] MEDS ORDERED: PROCHLORPERAZINE EDISYLATE 10 MG/2 ML SDV IV ONE (18:05)
[2024-07-26] MEDS ORDERED: PROCHLORPERAZINE5 M1 PO (18:57)
[2024-07-26 19:24] VITALS: BP 143/72
== END 2024-07-26 19:24 | disposition home or self-care (01) | DRG 392 ==
LOC: ED 16:10
PROVIDERS: Family Medicine
DX: R11.2 Nausea with vomiting, unspecified (principal); J45.909 Unspecified asthma, uncomplicated; F17.200 Nicotine dependence, unspecified, uncomplicated; Z20.822 Contact with and (suspected) exposure to COVID-19
CPT/HCPCS: J0780; J2405